=== PATIENT | female | born 1960 | race Caucasian/White ===

== ENCOUNTER → 2017-04-25 | Outpatient (CLI) | payer BC ==
[2017-04-25 11:35] LABS: BASOPHILS # (AUTO) 0.07 10*3/UL; EOSINOPHILS # (AUTO) 0.14 10*3/UL; EOSINOPHILS % (AUTO) 1.9 % (0-8); HEMOGLOBIN 15.8 g/dL (12.0-16.0); LYMPHOCYTES # (AUTO) 2.34 10*3/uL; MEAN CORPUSCULAR HEMOGLOBIN 30.2 PG (27-31); MEAN CORPUSCULAR HGB CONC 34.3 g/dL (33-37); MEAN CORPUSCULAR VOLUME 87.8 FL (81-99); MEAN PLATELET VOLUME 10.6 FL (7.4-12.2); MONOCYTES # (AUTO) 0.47 10*3/UL (0.3-0.8); MONOCYTES % (AUTO) 6.4 % (5-15); NEUTROPHILS # (AUTO) 4.28 10*3/UL; NEUTROPHILS % (AUTO) 58.6 % (50-80); RED BLOOD COUNT 5.24 10^6/uL (4.20-5.40)
[2017-04-25 11:47] LABS: HEMOGLOBIN A1C 5.72 % (4.2-6.0)
[2017-04-25 11:56] LABS: BLOOD UREA NITROGEN 15 mg/dL (7-22); BUN/CREATININE RATIO 21.42 (6-20); CALCIUM 9.5 mg/dL (8.7-10.7); CHOL/HDL RATIO 3.14 RATIO (0-4.0); EST GLOMERULAR FILTRATION > 60 (>60 ml/min/1.73m(2)); HDL CHOLESTEROL 35 mg/dL (40-150); SERUM ALBUMIN 3.8 g/dL (3.5-4.8); SERUM CHOLESTEROL 110 mg/dL (120-200)
[2017-04-25 12:11] LABS: PLATELET MORPHOLOGY COMMENT NORMAL MORPHOLOGY (NORM); RBC MORPHOLOGY COMMENT NORMAL MORPHOLOGY (NORM); WBC MORPHOLOGY COMMENT NORMAL MORPHOLOGY (NORM)
== END ==
LOC: LAB 11:19
PROVIDERS: ATTEND Family Medicine
DX: R06.02 Shortness of breath (principal); E03.9 Hypothyroidism, unspecified; E55.9 Vitamin D deficiency, unspecified; E78.4 Other hyperlipidemia; Z83.3 Family history of diabetes mellitus; Z87.09 Personal history of other diseases of the respiratory system; Z72.0 Tobacco use
CPT/HCPCS: 36415; 80053; 80061; 83036; 83880; 84443; 84484; 85025; 85379

== ENCOUNTER → 2017-05-02 | Outpatient (CLI) | payer BC ==
--- NOTE | 2017-05-02 15:14 | DI ---
CT CHEST SCAN WITHOUT IV CONTRAST, 05/02/2017 8:49 AM : Clinical History: Shortness of breath. Previous Exam: 01/03/2016. Scans are performed from the base of the neck to the lower lung bases without IV contrast. Sagittal a nd coronal images using non MIPS and MIPS technique are generated. The base of the neck and thoracic inlet are normal. There are no abnormal axillary, supraclavicular, mediastinal, or hilar nodes. The heart is normal. This patient may have a stent in the proximal third of the LAD. There are calcifications in the middle third of the LAD. The aorta and pulmonary arterie s are unremarkable for this noncontrast study. There is no acute infiltrate or effusion. No interstit ial fibrotic changes are noted. There are no pulmonary nodules. There is fatty infiltration primarily of the "geographic" distribution pattern in this degree of fatty infiltration is worsened on the pre vious exam. Both adrenal glands and the limited views of the pancreas and spleen are normal. READIN. Normal CT chest scan without IV contrast. There is no evidence of emphysema or chronic interstiti al lung disease to explain the patient's shortness of breath. There is no pulmonary arterial hyper[place]. 2. Fatty infiltration of the liver. The severity of fatty infiltration is worsened on the previous s tudy. 3. Coronary artery disease. The patient may have a stent in the proximal third of the LAD.
== END ==
LOC: CT 08:43
PROVIDERS: ATTEND Family Medicine
DX: R06.02 Shortness of breath (principal); R05 Cough; I25.10 Atherosclerotic heart disease of native coronary artery without angina pectoris; Z72.0 Tobacco use
CPT/HCPCS: 71250